=== PATIENT | female | born 1990 | race Caucasian/White ===

== ENCOUNTER → 2017-10-29 | Outpatient (CLI) | payer BC ==
[~2017-10-29] MED LIST: MOTRIN 800800 MG/TAB PO; PERCOCET 325 MG1 TA2 PO; PRENATAL1 TA1 PO
== END ==
LOC: SUN.DIA 09:11
DX: O24.419 Gestational diabetes mellitus in pregnancy, unspecified control (principal); Z3A.00 Weeks of gestation of pregnancy not specified; Z71.3 Dietary counseling and surveillance
CPT/HCPCS: G0108

== ENCOUNTER → 2017-11-05 | Outpatient (CLI) | payer BC | LOC: SUN.DIA 13:40 | DX: O24.419 Gestational diabetes mellitus in pregnancy, unspecified control (principal); Z3A.31 31 weeks gestation of pregnancy; Z71.3 Dietary counseling and surveillance | CPT/HCPCS: G0108 ==

== ENCOUNTER 2018-01-09 05:28 | Inpatient (IN) | payer BC ==
[2018-01-09] VITALS (19 sets, daily range): BP systolic 94–124; BP diastolic 49–83; PULSE 53–95; TEMP 98–98.1
[~2018-01-09] VITALS: Ht 165.1 cm; Wt 68.2 kg
[2018-01-09 06:43] LABS: BASO # 0.1 (0.0-0.2); BASO % 0.5 % (0.0-2.0); EOS # 0.1 (0.0-0.7); EOS % 0.7 % (0-4.0); GRAN # 6.3 (1.4-6.5); GRAN % 66.6 % (42.2-75.2); HEMATOCRIT 41.2 % (37.0-47.0); HEMOGLOBIN 13.5 g/dl (12.5-16.0); LYMPH # 2.4 (1.2-3.4); MEAN CELL VOLUME 89 fl (80.0-100.0); MEAN CORPUSCULAR HEMOGLOBIN 29 pg (27.0-31.0); MEAN CORPUSCULAR HGB CONC 33 g/dl (33.0-37.0); MEAN PLATELET VOLUME 13.9 fl (7.4-10.4); MONO # 0.6 (0.1-0.6); MONO % 6.5 % (1.7-9.3); PLATELET COUNT 137 K/mm3 (130-400); RED BLOOD COUNT 4.64 M/mm3 (4.10-5.30); REDCELL DISTRIBUTION WIDTH-CV 14.7 % (11.5-14.5)
[2018-01-10 08:00] VITALS: BP 115/83; PULSE 74; TEMP 97.4
[2018-01-10 16:45] VITALS: BP 118/81; PULSE 65; TEMP 97.5
[2018-01-10 20:20] VITALS: BP 123/75; PULSE 66; TEMP 98.1
[2018-01-11 08:18] VITALS: BP 121/82; PULSE 86; TEMP 97.8
[2018-01-11] MEDS ORDERED: IBU800 M1 PO (08:50)
[2018-01-11] MEDS ORDERED: PERCOCET 325 MG1 TA2 PO (08:51)
== END 2018-01-11 13:35 | disposition home or self-care (01) | DRG 766 ==
LOC: OB 05:28 → LDR 07:03 → OB 01-11 13:35
PROVIDERS: Student in an Organized Health Care Education/Training Program
PROC: 10D00Z1 Extraction of Products of Conception, Low, Open Approach (ICD-10-PCS; principal; 2018-01-09)
DX: O34.211 Maternal care for low transverse scar from previous cesarean delivery (principal); N85.8 Other specified noninflammatory disorders of uterus; O24.420 Gestational diabetes mellitus in childbirth, diet controlled; Z3A.39 39 weeks gestation of pregnancy; Z37.0 Single live birth
CPT/HCPCS: J0171; J0690; J1885; J2175; J2405; J2590; J3010; J7120

== ENCOUNTER → 2020-09-09 | Outpatient (CLI) | payer BC ==
[~2020-09-09] MED LIST changes: +IBU800 M1 PO; +PRENATAL TABLET PO; +TYLENOL 325MG325 MG PO
== END | disposition still patient (30) ==
LOC: ZCOL.LAB 08:00
DX: Z20.828 Contact with and (suspected) exposure to other viral communicable diseases (principal)

== ENCOUNTER 2020-09-13 05:32 | Inpatient (IN) | payer BC ==
[2020-09-13] VITALS (18 sets, daily range): BP systolic 90–119; BP diastolic 46–85; PULSE 60–116; TEMP 98–98.7
[~2020-09-13] VITALS: Ht 165.1 cm; Wt 68.7 kg
--- NOTE | 2020-09-13 05:30 | NUR ---
Pt ambulatory to 210 for scheduled repeat with . Clean gown on. EFM and TOCO explained and applied. Pt reports irregular contractions. Denies leaking of fluids or vaginal bleeding. Pt reports good movement. VS completed. 0550: IV started and labs obtained vis IV site. LR bolus infusing without difficulties. Consents completed. Pt denies questions at this time
[~2020-09-13 05:32] MED LIST changes: -PRENATAL TABLET PO; -TYLENOL 325MG325 MG PO
--- NOTE | 2020-09-13 06:15 | NUR ---
CONTRACTIONS NOTED EVERY 4-7 MINS. PT REPORTS FEELING CONTRACTIONS.
[2020-09-13 06:19] LABS: BASO % 0.5 % (0.0-2.0); EOS % 0.2 % (0-4.0); GRAN # 7.4 (1.4-6.5); GRAN % 84.4 % (42.2-75.2); HEMOGLOBIN 12.5 g/dl (12.5-16.0); LYMPH # 0.7 (1.2-3.4); LYMPH % 7.4 % (20.0-51.0); MEAN CELL VOLUME 88 fl (80.0-100.0); MEAN CORPUSCULAR HEMOGLOBIN 30 pg (27.0-31.0); MEAN CORPUSCULAR HGB CONC 34 g/dl (33.0-37.0); MEAN PLATELET VOLUME 13.4 fl (7.4-10.4); MONO # 0.5 (0.1-0.6); MONO % 6.2 % (1.7-9.3); PLATELET COUNT 144 K/mm3 (130-400); RED BLOOD COUNT 4.16 M/mm3 (4.10-5.30); REDCELL DISTRIBUTION WIDTH-CV 13.5 % (11.5-14.5)
[2020-09-13] MEDS ORDERED: PRENATAL TABLET PO (06:27)
[2020-09-13] MEDS ORDERED: TYLENOL 325MG325 MG PO (06:28)
[2020-09-13 06:39] LABS: HEMATOCRIT 36.4 % (37.0-47.0)
[2020-09-14 03:44] VITALS: BP 103/63; PULSE 63; TEMP 97.8
[2020-09-14 08:00] VITALS: BP 101/59; PULSE 63; TEMP 97.8
[2020-09-14] MEDS ORDERED: IBU800 M1 PO (09:54)
[2020-09-14] MEDS ORDERED: PERCOCET 325 MG1 TA2 PO (09:55)
== END 2020-09-14 13:40 | disposition home or self-care (01) | DRG 788 ==
LOC: OB 05:32
PROVIDERS: ADMIT Student in an Organized Health Care Education/Training Program
PROC: 10D00Z1 Extraction of Products of Conception, Low, Open Approach (ICD-10-PCS; principal; 2020-09-13)
DX: O34.211 Maternal care for low transverse scar from previous cesarean delivery (principal); O87.4 Varicose veins of lower extremity in the puerperium; O75.89 Other specified complications of labor and delivery; Z3A.39 39 weeks gestation of pregnancy; Z37.0 Single live birth
CPT/HCPCS: J0690; J1885; J2405; J2590; J7120

== ENCOUNTER → 2024-04-21 | Outpatient (CLI) | payer BC ==
[~2024-04-21] MED LIST changes: +Iohexol 300 - 10 ML VIAL IV ONE; +PRENATAL TABLET PO; +TYLENOL 325MG325 MG PO; +Triamcinolone 40 MG/ML 1 ML VIAL IJ ONE
== END ==
LOC: COL.RAD 10:14
DX: M25.552 Pain in left hip (principal)
CPT/HCPCS: J0665; J3301; Q9967